=== PATIENT | male | born 1995 | race Caucasian/White ===

== ENCOUNTER 2016-08-18 | Outpatient (CLI) | END 2016-08-18 17:31 | disposition EMS.NT ==

== ENCOUNTER 2016-09-01 10:37 | Day surgery (SDC) | payer BC, MEDICAID ==
[~2016-09-01 10:37] MED LIST: ACETAMINOPHEN 1,000 MG/100 ML VIAL IV ONE; CLINDAMYCIN 600 MG/50 ML 50 ML IV ONE; DEXAMETHASONE 4 MG/ML VIAL IVP ONE; LIDOCAINE-MPF 2% 5 ML VIAL IM ONE; MIDAZOLAM 2 MG/2 ML VIAL IVP ONE; ONDANSETRON 4 MG/2 ML VIAL IVP ONE; PROPOFOL 200 MG/20 ML VIAL IVP ONE; ceFAZolin 2 GM/50 ML 50 ML IV ONE; fentaNYL 250 MCG/5 ML VIAL IVP ONE
[2016-09-01] MEDS ORDERED: BUPIVACAINE 0.25%-EPI 1:200000 PF 30 ML VIAL SUBQ ONE ×2 (11:14→13:44)
[2016-09-01] MEDS ORDERED: LACTATED RINGERS 1,000 ML IV ONE ×4 (11:14→15:24)
[2016-09-01] MEDS ORDERED: MIDAZOLAM 2 MG/2 ML VIAL IVP ONE (12:23)
[2016-09-01] MEDS ORDERED: LIDOCAINE-MPF 2% 5 ML VIAL IM ONE (12:23)
[2016-09-01] MEDS ORDERED: fentaNYL 250 MCG/5 ML VIAL IVP ONE (12:23)
[2016-09-01] MEDS ORDERED: ACETAMINOPHEN 1,000 MG/100 ML VIAL IV ONE (12:23)
[2016-09-01] MEDS ORDERED: PROPOFOL 200 MG/20 ML VIAL IVP ONE (12:23)
[2016-09-01] MEDS ORDERED: DEXAMETHASONE 4 MG/ML VIAL IVP ONE (12:23)
[2016-09-01] MEDS ORDERED: ONDANSETRON 4 MG/2 ML VIAL IVP ONE (12:23)
[2016-09-01] MEDS ORDERED: LIDOCAINE 1% 50 ML MDV SUBQ ONE ×2 (13:25)
== END 2016-09-01 10:38 | disposition home or self-care (01) ==
PROC: 0PSK04Z Reposition Right Ulna with Internal Fixation Device, Open Approach (ICD-10-PCS; principal; 2016-09-01 11:20)
DX: S52.021A Displaced fracture of olecranon process without intraarticular extension of right ulna, initial encounter for closed fracture (principal); R06.83 Snoring; G40.909 Epilepsy, unspecified, not intractable, without status epilepticus; E66.9 Obesity, unspecified; R62.50 Unspecified lack of expected normal physiological development in childhood; Z79.899 Other long term (current) drug therapy; Z68.39 Body mass index [BMI] 39.0-39.9, adult
CPT/HCPCS: 24685; J0131; J0690; J3010; J7120

== ENCOUNTER 2016-11-05 10:42 | Outpatient (CLI) | payer BC, MEDICAID | END 2016-11-05 10:43 | disposition home or self-care (01) | DX: S82.261 Displaced segmental fracture of shaft of right tibia (principal) ==

== ENCOUNTER 2018-03-31 13:51 | Outpatient (CLI) | payer BC, MEDICAID | END 2018-03-31 13:52 | disposition home or self-care (01) | LOC: SC 13:51 | PROVIDERS: ATTEND Nurse Practitioner Family | DX: G47.30 Sleep apnea, unspecified (principal); G47.10 Hypersomnia, unspecified; R06.83 Snoring; R53.83 Other fatigue | CPT/HCPCS: 99212; 99214 ==

== ENCOUNTER 2018-04-11 17:12 | Outpatient (CLI) | payer BC, MEDICAID | END 2018-04-11 17:13 | disposition critical access hospital (66) | LOC: EMS 17:12 | PROVIDERS: ATTEND Surgery | DX: S01.01XA Laceration without foreign body of scalp, initial encounter (principal); R56.9 Unspecified convulsions; W18.39XA Other fall on same level, initial encounter; W22.8XXA Striking against or struck by other objects, initial encounter; Y92.009 Unspecified place in unspecified non-institutional (private) residence as the place of occurrence of the external cause | CPT/HCPCS: A0425; A0429 ==

== ENCOUNTER 2018-04-11 17:37 | Emergency (ER) | payer BC, MEDICAID ==
--- NOTE | 2018-04-11 17:51 | ED Physician Documentation ---
PD HPI SEIZURE - Stated complaint Stated Complaint: HEAD LAC - Chief complaint Chief Complaint: Neuro - History obtained from History obtained from: Patient, EMS - History of Present Illness Timing - onset: No: Last night Witnessed: Witnessed Number of seizures: Single, Lasted minutes (1) Description of seizure activity: Generalized Injury during seizure: Head injury (left side of head in parietal area.) Associated symptoms: None, Nausea / vomiting. No: Headache, Chest pain History of seizures: Known seizure disorder Contributing factors: Head injury (left side of head. Also with left forearm abrastions.). No: Off meds, Out of meds, Changed meds, EtOH withdrawal, Sleep deprivation Similar symptoms before: Diagnosis Recently seen: Not recently seen Review of Systems Unable to obtain: Confused, Other (autistic but does answer questions and does not seem in distress. left side of head in parietal area with superficial lac/ abrasion, without bleeding. Mild tender.) Constitutional: denies: Fever Eyes: denies: Loss of vision Nose: reports: Congestion. denies: Rhinorrhea / runny nose Throat: denies: Sore throat Cardiac: denies: Chest pain / pressure, Palpitations Respiratory: denies: Dyspnea, Cough GI: denies: Abdominal Pain, Nausea, Vomiting, Diarrhea : denies: Dysuria, Frequency Skin: reports: Abrasion (s). denies: Rash, Lesions Musculoskeletal: reports: Extremity pain (abrasions left lateral elbow.). denies: Neck pain, Back pain Neurologic: reports: Altered mental status. denies: Headache, Head injury PD PAST MEDICAL HISTORY - Past Medical History Cardiovascular: None Respiratory: None Neuro: Seizure disorder, Other (developmental delay.) Endocrine/Autoimmune: None GI: None : None HEENT: None Psych: None Musculoskeletal: None, Other Derm: None - Past Surgical History Past Surgical History: No - Present Medications Home Medications: Ambulatory Orders Medication Instructions Recorded Confirmed Nystatin 1 gm TP TID #120 gr 03/23/14 09/01/16 OXcarbazepine [Trileptal] 900 mg PO 03/23/14 03/23/14 Risperidone [Risperdal] 1 mg PO 03/23/14 03/23/14 Topiramate [Topamax] 200 mg PO 03/23/14 03/23/14 - Allergies Allergies/Adverse Reactions: Allergies Allergy/AdvReac Type Severity Reaction Status Date / Time albuterol Allergy Unknown Verified 04/11/18 17:49 clarithromycin [From Biaxin] Allergy Unknown Verified 04/11/18 17:49 Penicillins Allergy Unknown Verified 04/11/18 17:49 - Social History Does the pt smoke?: No Smoking Status: Never smoker Does the pt drink ETOH?: No Does the pt have substance abuse?: No - Family History Family history: reports: Non contributory - Immunizations Immunizations are current?: No Immunizations: TDAP >10years/unknown - POLST Patient has POLST: No PD ED PE NORMAL - Vitals Vital signs reviewed: Yes - General General: Alert and oriented X 3, No acute distress, Well developed/nourished, Other (he is awake and looking around during RG fit) - HEENT HEENT: PERRL, Ears normal, Moist mucous membranes, Pharynx benign, Other (left parietal area with single superficial laceration. No FB nor active bleeding. ) - Neck Neck: Supple, no meningeal sign, No bony TTP, No adenopathy - Cardiac Cardiac: RRR, No murmur - Respiratory Respiratory: Clear bilaterally - Abdomen Abdomen: Soft, Non tender - Male Male : Deferred - Rectal Rectal: Deferred - Back Back: No CVA TTP - Derm Derm: Normal color, Warm and dry - Extremities Extremities: Other (left lateral elbow with abrasions. No effusion. Able to have full blexion and extension. ) - Neuro Neuro: No motor deficit, No sensory deficit Results - Vitals Vitals: Vital Signs - 24 hr 04/11/18 04/11/18 17:40 20:05 Temperature 37.3 C Heart Rate 103 H 69 Respiratory 18 18 Rate Blood Pressure 153/85 H 132/68 H O2 Saturation 100 100 Oxygen O2 Source Room air - Labs Labs: Laboratory Tests 04/11/18 04/11/18 18:47 18:47 WBC 8.5 RBC 4.58 L Hgb 14.5 Hct 41.7 L MCV 91.1 MCH 31.7 H MCHC 34.8 RDW 12.4 Plt Count 249 MPV 7.5 Neut # (Auto) 6.2 Lymph # (Auto) 1.7 Rutherford # (Auto) 0.6 Eos # (Auto) 0.0 Baso # (Auto) 0.0 Absolute Nucleated RBC 0.00 Nucleated RBC % 0.0 Sodium 134 L Potassium 3.2 L Chloride 105 Carbon Dioxide 18 L Anion Gap 11.0 BUN 7 Creatinine 0.9 Estimated GFR (MDRD) 104 Glucose 96 Calcium 9.0 Magnesium 2.1 Total Bilirubin 0.7 AST 27 ALT 42 Alkaline Phosphatase 65 Total Protein 7.6 Albumin 4.1 Globulin 3.5 Albumin/Globulin Ratio 1.2 Lipase 28 - Rads (name of study) head CT Radiology: Prelim report reviewed (no ICH nor acute process. ) PD MEDICAL DECISION MAKING - ED course Complexity details: reviewed old records, reviewed results, re-evaluated patient , considered differential (having more frequent seizures the past few months. Will get labs and levels. Has appt with Neurologist Apr 22. ), d/w patient, d/ w family - Sepsis Event Vital Signs: Vital Signs - 24 hr 04/11/18 04/11/18 17:40 20:05 Temperature 37.3 C Heart Rate 103 H 69 Respiratory 18 18 Rate Blood Pressure 153/85 H 132/68 H O2 Saturation 100 100 Oxygen O2 Source Room air Departure - Departure Disposition: 01 Home, Self Care Clinical Impression: Generalized seizure, Seizure disorder Head contusion Qualifiers: Encounter type: initial encounter Contusion of head detail: scalp Qualified Code(s): S00.03XA - Contusion of scalp, initial encounter Arm abrasion Qualifiers: Encounter type: initial encounter Laterality: left Qualified Code(s): S40.812A - Abrasion of left upper arm, initial encounter Condition: Stable Record reviewed to determine appropriate education?: Yes Follow-Up: Jh Martinez DO [Primary Care Provider] - Comments: His basic blood count and electrolytes are good except for slightly low potassium which does not really affect the seizures. The seizure medicine levels are drawn and sent out and will result in a couple of days. The head CT appears normal without any signs of fracture or bleeding inside. Use some ointment to the abrasions couple times a day. Recheck if signs of infection. Continue his usual medications. Follow-up with his neurologist as planned. Discharge Date/Time: 04/11/18 20:15
[2018-04-11] MEDS ORDERED: ACETAMINOPHEN 325 MG TABLET PO STA (18:24)
[2018-04-11 18:54] LABS: BASOPHILS % (AUTO) 0.6 %; EOSINOPHILS % (AUTO) 0.3 %; HGB - HEMOGLOBIN 14.5 g/dL (14.0-18.0); LYMPHOCYTES # (AUTO) 1.7 10^3/uL (1.5-3.5); LYMPHOCYTES % (AUTO) 19.6 %; MEAN CORPUSCULAR HEMOGLOBIN 31.7 pg (27.0-31.0); MEAN CORPUSCULAR HGB CONC 34.8 g/dL (32.0-36.0); MEAN CORPUSCULAR VOLUME 91.1 fL (80.0-94.0); MEAN PLATELET VOLUME 7.5 fL (7.4-11.4); MONOCYTES # (AUTO) 0.6 10^3/uL (0.0-1.0); MONOCYTES % (AUTO) 6.5 %; NEUTROPHILS # (AUTO) 6.2 10^3/uL (1.5-6.6); PLT - PLATELET COUNT 249 10^3/uL (130-450); RED BLOOD COUNT 4.58 10^6/uL (4.70-6.10); RED CELL DISTRIBUTION WIDTH 12.4 % (12.0-15.0); WHITE BLOOD COUNT 8.5 x10^3/uL (4.8-10.8)
[2018-04-11 19:08] LABS: ALBUMIN 4.1 g/dL (3.2-5.5); ALBUMIN/GLOBULIN RATIO 1.2 (1.0-2.2); BILIRUBIN,TOTAL 0.7 mg/dL (0.2-1.0); CREATININE 0.9 mg/dL (0.6-1.2); MAGNESIUM 2.1 mg/dL (1.7-2.8); TOTAL PROTEIN 7.6 g/dL (6.7-8.2)
[2018-04-11] MEDS ORDERED: POTASSIUM BICARB 25 MEQ TABLET PO STA (19:13)
--- NOTE | 2018-04-11 19:16 | CT Report ---
Reason: seizure and struck head Procedure Date: 04/11/2018 Accession Number: [id number] / [id number] Procedure: CT - Head W/O CPT Code: FULL RESULT: EXAM: CT HEAD EXAM DATE: 04/11/2018 07:06 PM. CLINICAL HISTORY: Head trauma after seizure. COMPARISON: 11/06/2007. TECHNIQUE: Multiaxial CT images were obtained from the foramen magnum to the vertex. Reformats: Sagittal and coronal. IV contrast: None. In accordance with CT protocol optimization, one or more of the following dose reduction techniques were utilized for this exam: automated exposure control, adjustment of mA and/or KV based on patient size, or use of iterative reconstructive technique. FINDINGS: Parenchyma: No intraparenchymal hemorrhage. No evidence of mass, midline shift, or CT findings of infarction. Hernandez-white differentiation is distinct. Extraaxial Spaces: Normal for age. No subdural or epidural collections identified. Ventricles: Normal in size and position. Sinuses and Orbits: Imaged paranasal sinuses, orbits, and mastoids show no significant abnormality. Bones: No evidence of fracture or calvarial defect. Other: None. IMPRESSION: Normal head CT. RADIA
[2018-04-11 20:15] VITALS: BP 132/68
== END 2018-04-11 20:15 | disposition home or self-care (01) ==
LOC: ED 17:37
DX: G40.909 Epilepsy, unspecified, not intractable, without status epilepticus (principal); S00.03XA Contusion of scalp, initial encounter; S40.812A Abrasion of left upper arm, initial encounter; W18.30XA Fall on same level, unspecified, initial encounter; Y92.015 Private garage of single-family (private) house as the place of occurrence of the external cause; E87.6 Hypokalemia; F84.0 Autistic disorder
CPT/HCPCS: 36415; 70450; 80053; 81599; 83690; 83735; 85025; 99284; A9270

== ENCOUNTER 2018-06-14 17:21 | Outpatient (CLI) | payer BC, MEDICAID | END 2018-06-14 17:22 | disposition EMS.NT | LOC: EMS 17:21 | PROVIDERS: ATTEND Surgery | DX: R56.9 Unspecified convulsions (principal) ==

== ENCOUNTER 2018-06-29 15:31 | Outpatient (CLI) | payer BC, MEDICAID | END 2018-06-29 15:32 | disposition home or self-care (01) | LOC: SC 15:31 | PROVIDERS: ATTEND Nurse Practitioner Family | DX: G47.33 Obstructive sleep apnea (adult) (pediatric) (principal) | CPT/HCPCS: 99212; 99214 ==

== ENCOUNTER 2018-09-15 09:30 | Outpatient (CLI) | payer BC, MEDICAID | END 2018-09-15 09:31 | disposition home or self-care (01) | LOC: SC 09:30 | PROVIDERS: ATTEND Nurse Practitioner Family | DX: G47.33 Obstructive sleep apnea (adult) (pediatric) (principal) | CPT/HCPCS: 99212; 99214 ==

== ENCOUNTER 2018-11-21 15:00 | Outpatient (CLI) | payer BC, MEDICAID | END 2018-11-21 15:01 | disposition home or self-care (01) | LOC: SC 15:00 | PROVIDERS: ATTEND Nurse Practitioner Family | DX: G47.33 Obstructive sleep apnea (adult) (pediatric) (principal) | CPT/HCPCS: 99212; 99214 ==

== ENCOUNTER 2019-01-02 13:25 | Outpatient (CLI) | payer BC, MEDICAID | END 2019-01-02 13:26 | disposition home or self-care (01) | LOC: SC 13:25 | PROVIDERS: ATTEND Nurse Practitioner Family | DX: G47.33 Obstructive sleep apnea (adult) (pediatric) (principal) | CPT/HCPCS: 99212; 99214 ==

== ENCOUNTER 2019-02-20 12:50 | Outpatient (CLI) | payer BC, MEDICAID | END 2019-02-20 12:51 | disposition home or self-care (01) | LOC: SC 12:50 | PROVIDERS: ATTEND Nurse Practitioner Family | DX: G47.33 Obstructive sleep apnea (adult) (pediatric) (principal) | CPT/HCPCS: 99212; 99214 ==

== ENCOUNTER 2019-04-03 13:23 | Outpatient (CLI) | payer BC, MEDICAID ==
[2019-04-03 14:12] VITALS: BP 132/64
--- NOTE | 2019-04-03 14:12 | SLEEP CARE CONSULTATION ---
Information from patient questionnaire entered by Karyna Aburto. I have reviewed and concur with the information entered by Karyna Aburto. This document represents the service I personally performed and the decisions made by me, Brandie Block, RN, MSN, RADIAL ARM SAW OPERATOR. History of Present Illness Previous diagnosis: Moderate, Obstructive Sleep Apnea-Hypopnea Syndrome AHI: 18.9 Reason for CPAP/BiPAP follow up: other (6 WEEK FOLLOW UP WITH PRESSURE CHANGE) Equipment type: CPAP Equipment obtained from: [employer] Prior sleep studies: Yes Year and Where: 2018 [facility] additional information: The mask cushion was replaced as ordered - about 3 weeks ago. His chinstrap is wearing out and about 6 months old. He has started to use CPAP with nap but forgets sometimes and sleeps without it. CPAP Compliance Data - Data Reviewed with Patient Average duration of nightly device use: 5H 36M Compliance rate %: 70 Current pressure setting (cmH2O): 8-16 Humidity settin Heated hose settin Average residual AHI: 20.1 Central apnea: 0.9 Obstructive apnea: 11.1 Hypopnea: 8.1 Average large leak: 1 hour and 20 minutes Subjective Missed days of use due to: reports: other (falling asleep without CPAP ) Patient concerns: reports: other (mother has heard mask leaks and checks on patient and has found mask dislodged and sitting on forehead. ). denies: aerophagia, mask discomfort, air blowing in eyes, mask leak noise, condensation in mask/hose, nasal congestion, dry mouth, nose, throat, epistaxis Observed to snore while using device: No On therapy, patient: reports: sleeping better, awakening more refreshed, being more awake and alert during the day, more rested overall. denies: drowsiness while driving (does not drink) Initial [place] Sleepiness Scale score: 3 Current [place] Sleepiness Scale score: 3 Allergies and Home Medications Known drug allergies: Yes (penicillin, biaxin, albuterol) Home medication list reviewed: Yes Allergy and home medication list: Medication Name (generic/name brand) Strength & Dosage Risperdal 1mg tab one twice daily Oxcarbazepine 300mg tab two am and three pm Lorazepam 0.5mg tab one q4hr prn seizure Topamax 200mg tab one am and 300mg pm Clindamycin Phos-Benzoyl Perox 1-5% Apply small amount to face nightly Diastat Acudial 10mg rectal gel (Diazepam) Apply 10mg rectally prn seizure disorder Vitamin D 5000unit tab one daily Allergy List Biaxin PenicillinV Potassium Albuterol Sulfate Physical Exam Blood Pressure: 132/64 Cuff size: long Heart Rate: 68 O2 Saturation: 98 Height: 5 ft 10.5 in Weight (kg): 127.006 kg Body Mass Index: 39.6 BMI Classification: Class 2 Impression and Plan 1. Obstructive Sleep Apnea-Hypopnea Syndrome, with good treatment compliance but still has elevated residual AHI as the pressure was not changed as ordered. The pressure was again requested to be changed to [id number]. On CPAP therapy, the patient has better sleep quality and is more rested overall. His elevated residual AHI could also be due to mask leaks from old worn headgear and chinstrap. Thus new ones were ordered with prescription as she was able to finally obtain updated cushions after last prescription order. Patient was praised for effort in using CPAP. He has increased his average nightly use 50 minutes to 5.6 hours a night. He is again advised to use CPAP with all naps with goal of not needing a nap if he can use CPAP all through the night for a minimum of 7 hours. It is hoped that the replacement of chinstrap and headgear will assist him to use CPAP longer as his mother is finding mask dislodged intermittently. Until then she is advised to adjust present headgear evenly. Patient's apnea severity and rationale for treatment to reduce apnea, improve sleep quality and reduce cardiovascular and cerebrovascular events was reviewed. I also reviewed the benefit of consistent device use of CPAP for his seizures. He has not had a seizure since November and is was a mild one. Mother states vagal nerve stimulator also adjusted. He has also gained some weight and advised to lose as it can increase his CPAP pressure requirements. * Change CPAP pressure to 13-20 cmH2O - 2nd request * update mask headgear and chinstrap. * Adjust mask * Use the CPAP with all sleep, including naps. * Notify me if snoring with mask or feeling that the pressure is too much or too little * Attempt to lose weight * Return for follow up in 1-2 months , or sooner if concerns arise I spent 100% of this 30 minute visit face to face with the patient with greater than 50% of this was spent time counseling the patient and coordination of care.
== END 2019-04-03 13:24 | disposition home or self-care (01) ==
LOC: SC 13:23
PROVIDERS: ATTEND Nurse Practitioner Family
DX: G47.33 Obstructive sleep apnea (adult) (pediatric) (principal)
CPT/HCPCS: 99212; 99214

== ENCOUNTER 2019-06-06 13:13 | Outpatient (CLI) | payer BC, MEDICAID ==
[2019-06-06 14:21] VITALS: BP 120/70
--- NOTE | 2019-06-06 14:21 | SLEEP CARE CONSULTATION ---
Information from patient questionnaire entered by Karyna Aburto. I have reviewed and concur with the information entered by Karyna Aburto. This document represents the service I personally performed and the decisions made by me, Brandie Block, RN, MSN, ROLL OR TAPE EDGE MACHINE OPERATOR. History of Present Illness Previous diagnosis: Moderate, Obstructive Sleep Apnea-Hypopnea Syndrome AHI: 18.9 Reason for CPAP/BiPAP follow up: other (2 month) Equipment type: CPAP Equipment obtained from: [employer] Mask style: Nasal (eson 2) Mask brand: dotloop Backup mask available: No Last cushion change: a month or so ago Prior sleep studies: Yes HPI additional information: Patient mother feels he has been using it longer hours. He is pulling off mask less often in sleep. CPAP Compliance Data - Data Reviewed with Patient Average duration of nightly device use: 5h 31m Compliance rate %: 66.7 Current pressure setting (cmH2O): 8-16 Humidity settin Heated hose settin Average residual AHI: 15.7 Central apnea: 0.8 Obstructive apnea: 9.4 Hypopnea: 5.5 Subjective Missed days of use due to: reports: travel Patient concerns: reports: nasal congestion (recent cold), other (part of headgear broke off a couple of days ago. ). denies: aerophagia, mask discomfort, air blowing in eyes, mask leak noise, condensation in mask/hose, dry mouth, nose, throat (uses chinstrap), epistaxis Observed to snore while using device: No Current pressure setting perceived as: comfortable On therapy, patient: reports: sleeping better, more rested overall Initial [place] Sleepiness Scale score: 3 Current [place] Sleepiness Scale score: 4 Allergies and Home Medications Known drug allergies: Yes Allergy and home medication list: Medication Name (generic/name brand) Strength & Dosage Risperdal 1mg tab one twice daily Oxcarbazepine 300mg tab three am and three pm Lorazepam 0.5mg tab one q4hr prn seizure Topamax 200mg tab one am and 300mg pm Clindamycin Phos-Benzoyl Perox 1-5% Apply small amount to face nightly Diastat Acudial 10mg rectal gel (Diazepam) Apply 10mg rectally prn seizure disorder Vitamin D 5000unit tab one daily Allergy List Biaxin PenicillinV Potassium Albuterol Sulfate Review of Systems Review of systems same as previous: No (cold) Physical Exam Blood Pressure: 120/70 Cuff size: long Heart Rate: 68 O2 Saturation: 98 Height: 5 ft 10.5 in Weight: 279 lb 12.8 oz Body Mass Index: 39.5 BMI Classification: Obesity Class 2 Impression and Plan 1. Obstructive Sleep Apnea-Hypopnea Syndrome, moderate, with better treatment compliance and better apnea control. On CPAP therapy, the patient has better sleep quality and is more rested overall and mother notices improved mood. His compiance is now 66.7% just under 70% goal. He is using CPAP nightly and has increased nightly CPAP use 45 minutes. Since patient is not due for a new mask headgear and his is broken, I fitted him with a large Eson2 nasal mask. The residual AHI has reduced with better control of mask leaks and I would like this continued. The CPAP pressure was again not changed as requested the second time. Thus I will have changed in office if possible. If no access, then I will have the advertising operations coordinator contact [facility]. Patient's mother advised to contact this office if the pressure change is uncomfortable. It is hoped the new mask and new pressure will reduce AHI further. Patient's apnea severity and rationale for treatment to reduce apnea, improve sleep quality and reduce cardiovascular and cerebrovascular events was reviewed. I also reviewed the possible benefit of consistent device use of CPAP to his seizures due to reduced hypoxia. * * Change CPAP pressure to 13-20 cmH2O * Try new mask * Continue to use CPAP with all sleep * Notify me if snoring with mask or feeling that the pressure is too much or too little * Attempt to lose weight * Return for follow up in 2 months , or sooner if concerns arise . I spent 100% of this 25 minute visit face to face with the patient with greater than 50% of this was spent time counseling the patient and coordination of care.
== END 2019-06-06 13:14 | disposition home or self-care (01) ==
LOC: SC 13:13
PROVIDERS: ATTEND Nurse Practitioner Family
DX: G47.33 Obstructive sleep apnea (adult) (pediatric) (principal); E66.9 Obesity, unspecified; Z68.39 Body mass index [BMI] 39.0-39.9, adult
CPT/HCPCS: 99212; 99214

== ENCOUNTER 2019-08-14 13:05 | Outpatient (CLI) | payer BC, MEDICAID ==
[2019-08-14 13:46] VITALS: BP 134/60
--- NOTE | 2019-08-14 13:46 | SLEEP CARE CONSULTATION ---
Information from patient questionnaire entered by Raquel Vasquez. I have reviewed and concur with the information entered by Raquel Vasquez. This document represents the service I personally performed and the decisions made by me, Brandie Block, RN, MSN, CHRONIC MANAGER. History of Present Illness Previous diagnosis: Moderate, Obstructive Sleep Apnea-Hypopnea Syndrome AHI: 18.9 Reason for follow up: other (2 month) Accompanied by: mother Equipment type: CPAP Equipment obtained from: [employer] Mask style: Nasal Mask brand: [employer] Backup mask available: Yes Last cushion change: unknown HPI additional information: The mask given has worked well. This is good as he still has not received updated supplies, despite being due 08/01/19. His mother called and it turns out they just did not have chinstrap available. CPAP Compliance Data - Data Reviewed with Patient Average duration of nightly device use: 6 hrs Current pressure setting (cmH2O): 13-20 Humidity settin Heated hose settin Average residual AHI: 13.5 Central apnea: 0.4 Obstructive apnea: 4.5 Hypopnea: 8.6 Average large leak: 2.9 hours - vent buffer pad fell off the past few weeks / more leaks noted Subjective Missed days of use due to: reports: illness Patient concerns: reports: other (no recent observable seizures since April 13. ). denies: aerophagia, mask discomfort, air blowing in eyes, mask leak noise, condensation in mask/hose, nasal congestion, dry mouth, nose, throat, epistaxis Observed to snore while using device: No Current pressure setting perceived as: comfortable On therapy, patient: reports: sleeping better, being more awake and alert during the day (mother has not noted napping with new pressure ), more rested overall. denies: drowsiness while driving (does not drive ) Initial [place] Sleepiness Scale score: 3 Current [place] Sleepiness Scale score: 4 Allergies and Home Medications Known drug allergies: Yes (see list ) Drug allergies reviewed: Yes Home medication list reviewed: Yes (no changes) Review of Systems Review of systems same as previous: Yes Physical Exam Blood Pressure: 134/60 Cuff size: long Heart Rate: 94 O2 Saturation: 98 Height: 5 ft 10.5 in Weight: 279 lb Body Mass Index: 39.4 BMI Classification: Obesity Class 2 Impression and Plan 1. Obstructive Sleep Apnea-Hypopnea Syndrome, mild, with good treatment compliance and better apnea control. On CPAP therapy, the patient has better sleep quality and is more rested overall especially since last visit with updated mask and new pressure range. His mother has noted he no longer naps. If lies down, he does not sleep. She has also noted improved alertness during the day. In addition, there have been no observable seizures since late March. His CPAP nightly use is the best so far. Patients mother advised to continue to follow up with DME to get supplies on time to reduce mask leaks. Changing his mask cushion 2 times a month will improve fit. I will change his autoCPAP pressure slightly to [id number] as 90% pressure is 15.1. Patient's mother to c ontact me if new pressure not as comfortable for patient to use. She was shown how to check mask fit and AHI and hours used on sample CPAP. Patient's apnea severity and rationale for treatment to reduce apnea, improve sleep quality and reduce cardiovascular and cerebrovascular events was reviewed. * * Change autoCPAP pressure to 15-20 cmH2O * change mask cushions more often * Tract use and call if less * Notify me if snoring with mask or feeling that the pressure is too much or too little * Attempt to lose weight * Call this office if any problems using CPAP * Return for follow up in 3 months , or sooner if concerns arise Time Spent with Patient (minutes): 28 I spent 100% of this visit face to face with the patient with greater than 50% of this was spent time counseling the patient and coordination of care.
== END 2019-08-14 13:06 | disposition home or self-care (01) ==
LOC: SC 13:05
PROVIDERS: ATTEND Nurse Practitioner Family
DX: G47.33 Obstructive sleep apnea (adult) (pediatric) (principal); E66.9 Obesity, unspecified; Z68.39 Body mass index [BMI] 39.0-39.9, adult
CPT/HCPCS: 99212; 99214

== ENCOUNTER 2020-03-07 13:09 | Outpatient (CLI) | payer BC, MEDICAID ==
--- NOTE | 2020-03-07 13:45 | SLEEP CARE CONSULTATION ---
Information from patient questionnaire entered by Karyna Aburto. I have reviewed and concur with the information entered by Karyna Aburto. This document represents the service I personally performed and the decisions made by me, Brandie Block, RN, MSN, SHADOWGRAPH OPERATOR. History of Present Illness Service Date and Time: 03/07/2020 1309 Previous diagnosis: Moderate, Obstructive Sleep Apnea-Hypopnea Syndrome AHI: 18.9 Reason for follow up: six month (with pressure change) Equipment type: CPAP Equipment obtained from: [employer] (getting supplies as needed) Mask style: Nasal (with chinstrap) Backup mask available: Yes (old mask ) Last cushion change: 2-3 months HPI additional information: Changes since last seen is an increase in irritability. He has seen his neurologist and he informed that his current medication of Topiramate may be the cause so he needs to taper off as Lamictal is being start ed. He was also started on Remeron which is concerning Baudilio's mother about side effect to increase in appetite as he has started to gain weight. CPAP Compliance Data - Data Reviewed with Patient Average duration of nightly device use: 5h 25m Compliance rate %: 65 Current pressure setting (cmH2O): 15-20 Humidity settin Heated hose settin Average residual AHI: 10.8 (90% pressure average 17.8cmH20 / average 16.4cmH20) Central apnea: 0.5 Obstructive apnea: 5.4 Hypopnea: 4.9 Average large leak: 1h 35m 59s Subjective Patient concerns: reports: other (mother is finding his mask off in sleep a few times recently). denies: aerophagia, mask discomfort, air blowing in eyes, mask leak noise, condensation in mask/hose, nasal congestion, dry mouth, nose, throat, epistaxis Observed to snore while using device: No Current pressure setting perceived as: comfortable On therapy, patient: reports: sleeping better, awakening more refreshed, being more awake and alert during the day, more rested overall, other (continues to have no seizures ). denies: drowsiness while driving Initial [place] Sleepiness Scale score: 3 Allergies and Home Medications Known drug allergies: No (see list ) Home medication list reviewed: No (see HPI) Review of Systems Review of systems same as previous: No (see HPI ) Physical Exam Vital signs obtained and entered by: 144/74 Cuff size: long Heart Rate: 98 O2 Saturation: 85 Height: 5 ft 10.5 in Weight: 284 lb 6.4 oz (increase 10 pounds since starting Remeron) Body Mass Index: 40.2 BMI Classification: Morbidly Obese Impression and Plan 1. Obstructive Sleep Apnea-Hypopnea Syndrome, moderate, with fair treatment compliance and better apnea control. The higher pressure range reduced his residual AHI from 13.5 to 10.8. HIs mask leaks have reduced from 2.9 hours to 1.6 hours. On CPAP therapy, the patient has better sleep quality and is more rested overall and he continues to have no seizure activity since [place] last year. The patients pressure will be changed to autoCPAP 17-20 cmH20 For elevation of residual AHI. Patient's mother advised to contact me if pressure change is uncomfortable so that it can be adjusted. Goals for apnea control disc ussed. To improve mask fit, his mother is advised to update cushions and adjust mask headgear as needed. If continued problems, call [facility] for mask fitting and this office if an order is needed. For weight increase concerns, she is to contact the neurologist and her PCP. She agreed with plan. Patient's apnea severity and rationale for treatment to reduce apnea, improve sleep quality and reduce cardiovascular and cerebrovascular events was reviewed. Patient praised for continued effort to use CPAP with all his sleep. * * Changeauto CPAP pressure to 17-20 cmH2O * Implement measures to reduce mask leaks. * Notify me if snoring with mask or feeling that the pressure is too much or too little * Attempt to lose weight * Call this office if any problems using CPAP * Return for follow up in 2 months , or sooner if concerns arise Visit Type: In Office Time Spent with Patient (minutes): 25 Provider Statement: I spent 100% of the Face to Face Visit with the patient with greater than 50% spent counseling the patient and coordination of care.
== END 2020-03-07 13:10 | disposition home or self-care (01) ==
LOC: SC 13:09
PROVIDERS: ATTEND Nurse Practitioner Family
DX: G47.33 Obstructive sleep apnea (adult) (pediatric) (principal); E66.01 Morbid (severe) obesity due to excess calories; Z68.41 Body mass index [BMI] 40.0-44.9, adult
CPT/HCPCS: 99212; 99214

== ENCOUNTER 2020-03-08 10:40 | Outpatient (CLI) | payer BC, MEDICAID | END 2020-03-08 10:41 | disposition EMS.NT | LOC: EMS 10:40 | PROVIDERS: ATTEND Surgery | DX: R56.9 Unspecified convulsions (principal) ==

== ENCOUNTER 2020-05-08 13:31 | Outpatient (CLI) | payer BC, MEDICAID ==
--- NOTE | 2020-05-08 14:17 | SLEEP CARE CONSULTATION ---
Information from patient questionnaire entered by Raquel Vasquez. I have reviewed and concur with the information entered by Raquel Vasquez. This document represents the service I personally performed and the decisions made by me, Brandie Block, RN, MSN, TECHNICAL SALES REPRESENTATIVES. History of Present Illness Service Date and Time: 05/08/2020 1331 Previous diagnosis: Moderate, Obstructive Sleep Apnea-Hypopnea Syndrome AHI: 18.9 (in 2018) Reason for follow up: other (2 month) Equipment type: CPAP Equipment obtained from: [employer] Mask style: Nasal [facility] Type [facility] Study: Home sleep study ([facility]) Sleep Study - Results Prior sleep studies: Yes Year and Where: 2017 [facility] CPAP Compliance Data - Data Reviewed with Patient Average duration of nightly device use: 4.8 Compliance rate %: 60 Current pressure setting (cmH2O): 17-20 Humidity settin Heated hose settin Average residual AHI: 7.1 Central apnea: 0.0 Obstructive apnea: 0.0 Hypopnea: 7.1 Average large leak: 4 hrs 36 min 26 sec Subjective Patient concerns: reports: dry mouth, nose, throat. denies: aerophagia, mask discomfort, air blowing in eyes, mask leak noise, condensation in mask/hose, nasal congestion, epistaxis, other Observed to snore while using device: Yes (with mouth open , nasal mask in place) Current pressure setting perceived as: comfortable On therapy, patient: reports: sleeping better, awakening more refreshed, being more awake and alert during the day, more rested overall. denies: drowsiness while driving (does not drive ) Initial [place] Sleepiness Scale score: 3 (in 2018) Allergies and Home Medications Known drug allergies: Yes Home medication list reviewed: No (stopped Remeron and replaced with celexa ) Review of Systems Review of systems same as previous: Yes Physical Exam Blood Pressure: 128/72 Cuff size: long Heart Rate: 63 O2 Saturation: 98 Height: 5 ft 10.5 in Weight: 278 lb 6.4 oz Weight change since last visit: lost 6 pounds since Remeron stopped Body Mass Index: 39.4 BMI Classification: Obese Impression and Plan 1. Obstructive Sleep Apnea-Hypopnea Syndrome, moderate, with fair treatment compliance and mild elevated residual AHI. On CPAP therapy, the patient has better sleep quality and is more rested overall. For increased residual AHI and oral venting noted by patient's mother she heard him snore with his nasal mask on, I will order a mask refitting. This should also resolve his oral dryness. Mask refitting could be a nasal mask with chinstrap or full face mask as indicated with evaluation of RT. I believe his residual AHI will come down to goal of below 5 with better mask fit. Pressure change showed reduced AHI from 10.8 to 7. Masks leaks could be reason the use of CPAP hours is less as so large , device mistakes large leak for off face due to review of compliance and longer use noted overall. Patient's apnea severity and rationale for treatment to reduce apnea, improve sleep quality and reduce cardiovascular and cerebrovascular events was reviewed. * Continue auto CPAP pressure at 17-20 cmH2O * mask refitting * Notify me if snoring with mask or feeling that the pressure is too much or too little * Attempt to lose weight * Call this office if any problems using CPAP * Return for follow up in 1 -2 months after mask refitting , or sooner if concerns arise Visit Type: In Office Time Spent with Patient (minutes): 22 Provider Statement: I spent 100% of the Face to Face Visit with the patient with greater than 50% spent counseling the patient and coordination of care.
[2020-05-08 14:18] VITALS: BP 128/72
== END 2020-05-08 13:32 | disposition home or self-care (01) ==
LOC: SC 13:31
PROVIDERS: ATTEND Nurse Practitioner Family
DX: G47.33 Obstructive sleep apnea (adult) (pediatric) (principal); E66.9 Obesity, unspecified; Z68.39 Body mass index [BMI] 39.0-39.9, adult
CPT/HCPCS: 99212; 99213

== ENCOUNTER 2020-06-19 14:31 | Outpatient (CLI) | payer BC, MEDICAID ==
--- NOTE | 2020-06-19 15:13 | SLEEP CARE CONSULTATION ---
Information from patient questionnaire entered by Nathalie Dominguez. I have reviewed and concur with the information entered by Nathalie Dominguez. This document represents the service I personally performed and the decisions made by me, Valeria Warren ARNP. History of Present Illness Service Date and Time: 06/19/2020 1431 Previous diagnosis: Moderate, Obstructive Sleep Apnea-Hypopnea Syndrome AHI: 18.9 Reason for follow up: other (6-week followup) Equipment type: CPAP Equipment obtained from: [employer] (getting supplies as needed) Mask style: Full face (with chinstrap) Backup mask available: Yes (old mask) Last cushion change: 5-6 weeks Prior sleep studies: Yes Year and Where: 2017 [facility] Type of Sleep Study: Home sleep study HPI additional information: BAUDILIO QUINTERO was diagnosed to have moderate, AHI 18.9, obstructive sleep apnea- hypopnea syndrome and returned today with mother for CPAP therapy six week follow-up. Sleep Study - Results Type of Sleep Study: Home sleep study Prior sleep studies: Yes Year and Where: 2017 [facility] CPAP Compliance Data - Data Reviewed with Patient Average duration of nightly device use: 3 h 31 min Compliance rate %: 40 Current pressure setting (cmH2O): 17-20 Humidity settin Heated hose settin Average residual AHI: 12.3 Central apnea: 0.0 Obstructive apnea: 0.0 Hypopnea: 12.3 Average large leak: 3 h 25 min 42 sec Compliance data discussion: He switched his mask to a full mask. Mother states that he seems to be wearing it better and it is in the right place when she checks on him before going to bed. He does get restless some times and moves to where the mask is off a little where she cannot reposition it, but this is only occasionally. Subjective Patient concerns: denies: aerophagia, mask discomfort, air blowing in eyes, mask leak noise, condensation in mask/hose, nasal congestion, dry mouth, nose, throat, epistaxis, other Observed to snore while using device: No Current pressure setting perceived as: comfortable On therapy, patient: reports: sleeping better, awakening more refreshed, being more awake and alert during the day, more rested overall Initial [place] Sleepiness Scale score: 2 (in 2016) Current [place] Sleepiness Scale score: 2 Allergies and Home Medications Drug allergies reviewed: Yes (albuterol, clarithromycin, penicillin) Home medication list reviewed: Yes (no changes) Review of Systems Review of systems same as previous: Yes (no changes) Physical Exam Heart Rate: 77 O2 Saturation: 98 Height: 5 ft 10.5 in Weight: 277 lb Body Mass Index: 39.2 BMI Classification: Obese Impression and Plan 1. Obstructive Sleep Apnea-Hypopnea Syndrome, moderate, with poor treatment compliance and poor apnea control with elevated residual AHI. On CPAP therapy, the patient has better sleep quality and is more rested overall. Patient does seem to be able to keep the mask in place per his mother but he is still having over 3 hours of large leaks showing on his download. He does need to shave and has not changed out the mask in over 5 weeks. I encouraged him to clean his face and shave daily to allow the mask to seal well to reduced mask leaks. They were instructed to change mask every 2 weeks as well to encourage a good seal stays on the mask/face fit. I encouraged Baudilio to keep the mask on all night and he agreed that he will. Mother states he is up with it off before she gets up in the mornings so is unsure when it comes off. She does not hear him up in the bathroom very often during the night. His elevated residual AHI is probably due to the mask leaking, I will continue pressure at current pressure range at this time. Patient's apnea severity and rationale for treatment to reduce apnea, improve sleep quality and reduce cardiovascular and cerebrovascular events was reviewed. * Continue auto CPAP pressure at 17-20 cmH2O * Notify me if snoring with mask or feeling that the pressure is too much or too little * Attempt to lose weight * Call this office if any problems using CPAP * Return for follow up in 1-2 months, or sooner if concerns arise Counseling Topics: Spare mask Visit Type: In Office Other Participants: Other (Mother) Time Spent with Patient (minutes): 23 Provider Statement: I spent 100% of the Face to Face Visit with the patient with greater than 50% spent counseling the patient and coordination of care.
== END 2020-06-19 14:32 | disposition home or self-care (01) ==
LOC: SC 14:31
PROVIDERS: ATTEND Nurse Practitioner Family
DX: G47.33 Obstructive sleep apnea (adult) (pediatric) (principal); E66.9 Obesity, unspecified; Z68.39 Body mass index [BMI] 39.0-39.9, adult
CPT/HCPCS: 99212

== ENCOUNTER 2020-07-31 12:52 | Outpatient (CLI) | payer BC, MEDICAID ==
--- NOTE | 2020-07-31 13:30 | SLEEP CARE CONSULTATION ---
Information from patient questionnaire entered by Raquel Vasquez. I have reviewed and concur with the information entered by Raquel Vasquez. This document represents the service I personally performed and the decisions made by , Valeria Warren ARNP. History of Present Illness Service Date and Time: 07/31/2020 1252 Previous diagnosis: Moderate, Obstructive Sleep Apnea-Hypopnea Syndrome AHI: 18.9 (in 2018) Reason for follow up: other (6 week) Equipment type: CPAP Equipment obtained from: [employer] (getting supplies as needed) Mask style: Full face Backup mask available: Yes Last cushion change: 2 weeks Prior sleep studies: Yes Year and Where: 2018 - [email or web address] Type of Sleep Study: Home sleep study HPI additional information: GOGO QUINTERO was diagnosed to have moderate, AHI 18.9, obstructive sleep apnea- hypopnea syndrome and returned today with his mother for CPAP therapy 6 week pressure change follow-up. CPAP Compliance Data - Data Reviewed with Patient Average duration of nightly device use: 3 hr 7 min Compliance rate %: 30 Current pressure setting (cmH2O): 17-20 Humidity settin Heated hose settin Average residual AHI: 12.3 Central apnea: 0.0 Obstructive apnea: 0.0 Hypopnea: 12.3 Average large leak: 2 hr 59 min Subjective Initial [place] Sleepiness Scale score: 2 (in 2016) Current [place] Sleepiness Scale score: 2 Allergies and Home Medications Drug allergies reviewed: Yes (albuterol, clarithromycin, penicillins) Home medication list reviewed: Yes (no changes) Review of Systems Review of systems same as previous: No (surgical procedure 06/24/2020 battery repl vagal nerve stimulator) Physical Exam Heart Rate: 75 O2 Saturation: 98 Height: 5 ft 10.5 in Weight: 278 lb Body Mass Index: 39.3 BMI Classification: Obese Impression and Plan 1. Obstructive Sleep Apnea-Hypopnea Syndrome, moderate, with poor treatment compliance and poor apnea control with elevated residual AHI at 12.3. On CPAP therapy, the patient has better sleep quality and is more rested overall. He is accompanied by his mother who feels he is not snoring through the full face mask. He continues to have large leaks just under 3 hours and an elevated residual AHI. His mother states she has been checking and the mask is staying on his face at night. She is not hearing snoring or large leaking noises around the mask. She would like to try him back in the [place] mask because she thinks it was working better. The patients pressure will be continue at autoCPAP 17-20 cmH20. The down load shows use under 3 hours a night on average with large leaks and only using 17 cmH2O overall with a residual of 12.3. I am concerned that we are not getting good information or the machine pressure is malfunctioning. I will order the machine to be serviced to check for malfunctioning. Mother will try him back on the [place] mask as well until the next follow up. Patient's apnea severity and rationale for treatment to reduce apnea, improve sleep quality and reduce cardiovascular and cerebrovascular events was reviewed. * Continue auto CPAP pressure at 17-20 cmH2O * Service machine for possible malfunctioning * Notify me if snoring with mask or feeling that the pressure is too much or too little * Call this office if any problems using CPAP * Return for follow up in 1-2 months, or sooner if concerns arise Counseling Topics: Spare mask Visit Type: In Office Time Spent with Patient (minutes): 25 Provider Statement: I spent 100% of the Face to Face Visit with the patient with greater than 50% spent counseling the patient and coordination of care.
== END 2020-07-31 12:53 | disposition home or self-care (01) ==
LOC: SC 12:52
PROVIDERS: ATTEND Nurse Practitioner Family
DX: G47.33 Obstructive sleep apnea (adult) (pediatric) (principal); E66.9 Obesity, unspecified; Z68.39 Body mass index [BMI] 39.0-39.9, adult
CPT/HCPCS: 99212; 99213

== ENCOUNTER 2020-10-09 13:19 | Outpatient (CLI) | payer BC, MEDICAID ==
--- NOTE | 2020-10-09 13:58 | SLEEP CARE CONSULTATION ---
Information from patient questionnaire entered by Nathalie Dominguez. I have reviewed and concur with the information entered by Nathalie Dominguez. This document represents the service I personally performed and the decisions made by , Valeria Warren ARNP. History of Present Illness Service Date and Time: 10/09/2020 1319 Previous diagnosis: Moderate, Obstructive Sleep Apnea-Hypopnea Syndrome AHI: 18.9 Reason for follow up: other (2-month followup) Equipment type: CPAP Equipment obtained from: [employer] (getting supplies as needed) Mask style: Full face (with chinstrap) Backup mask available: Yes (old mask) Prior sleep studies: Yes Year and Where: 2018 - [facility] Type of Sleep Study: Home sleep study HPI additional information: GOGO QUINTEOR was diagnosed to have moderate, AHI 18.9, obstructive sleep apnea- hypopnea syndrome and returned today with mother for CPAP therapy two month follow-up. CPAP Compliance Data - Data Reviewed with Patient Average duration of nightly device use: 3 h 39 min Compliance rate %: 45 Current pressure setting (cmH2O): 17-20 Humidity settin Heated hose settin Average residual AHI: 13.9 Central apnea: 0.0 Obstructive apnea: 0.2 Hypopnea: 13.7 Average large leak: 3 h 27 min 27 sec Subjective Patient concerns: denies: aerophagia, mask discomfort, air blowing in eyes, mask leak noise, condensation in mask/hose, nasal congestion, dry mouth, nose, throat, epistaxis, other Observed to snore while using device: No Current pressure setting perceived as: comfortable On therapy, patient: reports: sleeping better, awakening more refreshed, being more awake and alert during the day, more rested overall Initial [place] Sleepiness Scale score: 2 (in 2016) Current [place] Sleepiness Scale score: 3 Allergies and Home Medications Home medication list reviewed: Yes (no changes) Review of Systems Review of systems same as previous: Yes (no changes) Physical Exam Heart Rate: 74 O2 Saturation: 97 Height: 5 ft 10.5 in Weight: 280 lb Body Mass Index: 39.6 BMI Classification: Obese Impression and Plan 1. Obstructive Sleep Apnea-Hypopnea Syndrome, moderate, with poor treatment compliance and fair apnea control with an elevated residual AHI. On CPAP therapy, the patient has better sleep quality and is more rested overall. His mother states that when he is less tired during the day and not wanting to take naps. His mother states that the RT came to check out his machine and found that his machine was malfunctioning. They replaced it with another machine and took the old one back with them. She has not heard back from them about the machine. She states the new machine will read that he is sleeping over 9 hours for a few days and then down to 0.3 hours of sleep. She is not sure why it is reading differently. She makes sure that his mask is on and it looks like it is fitting well. She is not hearing the mask leaking or any snoring from his room. His machine continues to register large leaks averaging 3 hours 27 minutes 27 seconds in the last 60 days. He is using his machine 100% of the nights. I think the elevated residual AHI may be due to the large leaks registered on the machine. Mother states he does sleep mostly on his side. He may be having more leaking when he moves during the night that she is not witnessing. Mask leaks predominately from when patient sleeps on their side can be reduced by using a CPAP pillow. A CPAP pillow sample was shown. This and other styes can be purchased online. His mother voiced understanding. I will consult with Dr. Hinton for any other suggestions to help get his compliance up and AHI reduced. I will let his mother know of any changes after I consult with him. Patient's apnea severity and rationale for treatment to reduce apnea, improve sleep quality and reduce cardiovascular and cerebrovascular events was reviewed. * Continue autoCPAP pressure at 17-20 cmH2O * Notify me if snoring with mask or feeling that the pressure is too much or too little * Attempt to lose weight * Call this office if any problems using CPAP * Return for follow up in 2 months, or sooner if concerns arise Counseling Topics: Spare mask, Weight loss health impact Visit Type: In Office Other Participants: Other (Mother) Time Spent with Patient (minutes): 23 Provider Statement: I spent 100% of the Face to Face Visit with the patient with greater than 50% spent counseling the patient and coordination of care.
== END 2020-10-09 13:20 | disposition home or self-care (01) ==
LOC: SC 13:19
PROVIDERS: ATTEND Nurse Practitioner Family
DX: G47.33 Obstructive sleep apnea (adult) (pediatric) (principal); E66.9 Obesity, unspecified; Z68.39 Body mass index [BMI] 39.0-39.9, adult
CPT/HCPCS: 99212; 99213

== ENCOUNTER 2020-10-24 08:00 | Outpatient (CLI) | payer BC, MEDICAID ==
[2020-10-24 18:16] LABS: BASOPHILS % (AUTO) 0.3 %; EOSINOPHILS % (AUTO) 0.6 %; HCT - HEMATOCRIT 44.9 % (42.0-52.0); HGB - HEMOGLOBIN 14.9 g/dL (14.0-18.0); LYMPHOCYTES # (AUTO) 2.2 10^3/uL (1.5-3.5); LYMPHOCYTES % (AUTO) 35.4 %; MEAN CORPUSCULAR HEMOGLOBIN 31.3 pg (27.0-31.0); MEAN CORPUSCULAR HGB CONC 33.2 g/dL (32.0-36.0); MEAN CORPUSCULAR VOLUME 94.3 fL (80.0-94.0); MEAN PLATELET VOLUME 9.9 fL (7.4-11.4); MONOCYTES # (AUTO) 0.4 10^3/uL (0.0-1.0); MONOCYTES % (AUTO) 6.9 %; NEUTROPHILS # (AUTO) 3.5 10^3/uL (1.5-6.6); NEUTROPHILS % (AUTO) 56.3 %; PLT - PLATELET COUNT 212 10^3/uL (130-450); RED BLOOD COUNT 4.76 10^6/uL (4.70-6.10); RED CELL DISTRIBUTION WIDTH 12.1 % (12.0-15.0); WHITE BLOOD COUNT 6.2 x10^3/uL (4.8-10.8)
[2020-10-24 18:42] LABS: ALBUMIN 4.9 g/dL (3.2-5.5); ALBUMIN/GLOBULIN RATIO 1.6 (1.0-2.2); ALKALINE PHOSPHATASE 77 IU/L (42-121); ALT ALANINE AMINOTRANSFERASE 36 IU/L (10-60); AST ASPARTATE AMINOTRANSFERASE 27 IU/L (10-42); BILIRUBIN,TOTAL 0.7 mg/dL (0.2-1.0); BUN - BLOOD UREA NITROGEN 11 mg/dL (6-20); CALCIUM 9.2 mg/dL (8.5-10.3); CARBON DIOXIDE - CO2 21 mmol/L (21-32); CHLORIDE 102 mmol/L (101-111); CHOL/HDL RATIO 5.6 (<5.0); CHOLESTEROL 202 mg/dL; CREATININE 0.8 mg/dL (0.6-1.2); GFR - MDRD 116 (>89); GLUCOSE 90 mg/dL (70-100); HDL CHOLESTEROL 36 mg/dL; LDL CHOLESTEROL,CALCULATED 126 mg/dL; LDL/HDL RATIO 3.5 (<3.6); POTASSIUM 3.6 mmol/L (3.5-5.0); SODIUM 133 mmol/L (135-145); TOTAL PROTEIN 7.9 g/dL (6.7-8.2); TRIGLYCERIDES 200 mg/dL; VLDL CHOLESTEROL 40 mg/dL
[2020-10-24 18:47] LABS: THYROID STIMULATING HORMONE 1.07 uIU/mL (0.34-5.60)
[2020-10-24 20:56] LABS: ESTIMATED AVERAGE GLUCOSE 94 mg/dL (70-100); HEMOGLOBIN A1c% 4.9 % (4.27-6.07)
== END 2020-10-24 23:59 | disposition home or self-care (01) ==
LOC: LAB.WCP 08:00
PROVIDERS: ATTEND Family Medicine
DX: R73.01 Impaired fasting glucose (principal); Z79.899 Other long term (current) drug therapy
CPT/HCPCS: 36415; 80053; 80061; 83036; 83721; 84443; 85025

== ENCOUNTER 2020-12-11 13:15 | Outpatient (CLI) | payer BC, MEDICAID ==
--- NOTE | 2020-12-11 13:53 | SLEEP CARE CONSULTATION ---
Information from patient questionnaire entered by Nathalie Dominguez. I have reviewed and concur with the information entered by Nathalie Dominguez. This document represents the service I personally performed and the decisions made by , Valeria Warren ARNP. History of Present Illness Service Date and Time: 12/11/2020 1315 Previous diagnosis: Moderate, Obstructive Sleep Apnea-Hypopnea Syndrome AHI: 18.9 (in 2018) Reason for follow up: other (2-month followup) Equipment type: CPAP Equipment obtained from: [employer] (getting supplies as needed) Mask style: Full face Backup mask available: Yes (old mask) Last cushion change: 4 months Prior sleep studies: Yes Year and Where: 2018 - ACCUSOM BY [facility] Type of Sleep Study: Home sleep study HPI additional information: GOGO QUINTERO was diagnosed to have moderate, AHI 18.9, obstructive sleep apnea- hypopnea syndrome and returned today with mother for CPAP therapy 2 month follow-up. CPAP Compliance Data - Data Reviewed with Patient Average duration of nightly device use: 2 h 13 min Compliance rate %: 30 Current pressure setting (cmH2O): 17-20 Humidity settin Heated hose settin Average residual AHI: 16.9 Central apnea: 0.0 Obstructive apnea: 0.0 Hypopnea: 16.9 Average large leak: 2 h 2 min 16 sec Subjective Patient concerns: reports: mask leak noise. denies: aerophagia, mask discomfort, air blowing in eyes, condensation in mask/hose, nasal congestion, dry mouth, nose, throat, epistaxis, other Observed to snore while using device: No Current pressure setting perceived as: comfortable On therapy, patient: reports: sleeping better, awakening more refreshed, being more awake and alert during the day, more rested overall. denies: drowsiness while driving Initial [place] Sleepiness Scale score: 2 (in 2016) Current [place] Sleepiness Scale score: 2 Allergies and Home Medications Home medication list reviewed: Yes (no changes) Review of Systems Review of systems same as previous: Yes (no changes) Physical Exam Heart Rate: 73 O2 Saturation: 98 Height: 5 ft 10.5 in Weight: 278 lb Weight change since last visit: 2 lb loss Body Mass Index: 39.3 BMI Classification: Obese Impression and Plan 1. Obstructive Sleep Apnea-Hypopnea Syndrome, moderate, with poor treatment compliance and fair apnea control with an elevated residual AHI. On CPAP therapy, the patient has better sleep quality and is more rested overall. His mother states he has more energy when the machine has shown he has a good night with his machine. His compliance in last 30 days is better than his last visit. I still feel a titration study would be helpful to get one-on-one mask fitting and observance of his sleep to see what is going on, why the large mask leaks, etc. His download shows only hypopneas to 16.9 and his residual AHI is 16.9. I have ordered the titration study and due to need for mother to be close we will wait until we have our night motor vehicle technician to have the study done. I will follow up with him after the study is completed to go over the results. Patient's apnea severity and rationale for treatment to reduce apnea, improve sleep quality and reduce cardiovascular and cerebrovascular events was reviewed. * Continue auto CPAP pressure at 17-20 cmH2O * Titration study * Notify me if snoring with mask or feeling that the pressure is too much or too little * Continue to try to lose weight * Call this office if any problems using CPAP * Return for follow up after titration study, or sooner if concerns arise Counseling Topics: Spare mask, Weight loss health impact Visit Type: In Office Time Spent with Patient (minutes): 29 Provider Statement: I spent 100% of the Face to Face Visit with the patient with greater than 50% spent counseling the patient and coordination of care.
== END 2020-12-11 13:16 | disposition home or self-care (01) ==
LOC: SC 13:15
PROVIDERS: ATTEND Nurse Practitioner Family
DX: G47.33 Obstructive sleep apnea (adult) (pediatric) (principal); E66.9 Obesity, unspecified; Z68.39 Body mass index [BMI] 39.0-39.9, adult
CPT/HCPCS: 99212; 99213

== ENCOUNTER 2021-02-11 15:16 | Outpatient (CLI) | payer BC, MEDICAID ==
--- NOTE | 2021-02-11 17:35 | XRAY Report ---
PROCEDURE: Elbow 3 View RT INDICATIONS: OLECRANON BURSITIS, RIGHT TECHNIQUE: 3 views of the elbow were acquired. COMPARISON: Prior elbow series dated 11/05/2016 FINDINGS: Bones: Stable positioning of surgical pins in K wires involving the proximal ulna related to prior OR IF.. No suspicious bony lesions. Soft tissues: No elbow joint effusion. No suspicious soft tissue calcifications. IMPRESSION: Stable postsurgical changes in bony alignment. Reviewed by: TAJ Crockett on 02/11/2021 5:33 PM PDT Approved by: Tramaine Perez MD on 02/11/2021 5:33 PM PDT Station ID: [id number]
== END 2021-02-11 15:17 | disposition home or self-care (01) ==
LOC: DI.N 15:16
PROVIDERS: ATTEND Family Medicine
DX: M70.21 Olecranon bursitis, right elbow (principal)

== ENCOUNTER 2021-10-09 10:44 | Outpatient (CLI) | payer BC, MEDICAID ==
[2021-10-09 11:30] VITALS: BP 139/78
--- NOTE | 2021-10-09 11:30 | SLEEP CARE CONSULTATION ---
Information from patient questionnaire entered by Tomas Mckeon MA. I have reviewed and concur with the information entered by Tomas Mckeon MA. This document represents the service I personally performed and the decisions made by , Valeria Warren ARNP. History of Present Illness Service Date and Time: 10/09/2021 1044 Previous diagnosis: Moderate, Obstructive Sleep Apnea-Hypopnea Syndrome AHI: 18.9 (in 2018) Reason for follow up: other (10 MONTH F/U) Accompanied by: Mother Equipment type: CPAP Equipment obtained from: [employer] (having diffuculties, they will not bill his insurance) Mask style: Full face Backup mask available: No Prior sleep studies: Yes Year and Where: 2017 - [facility] Type of Sleep Study: Home sleep study HPI additional information: BAUDILIO QUINTERO was diagnosed to have moderate, AHI 18.9, obstructive sleep apnea- hypopnea syndrome and returned today with mother for CPAP therapy 10 month follow-up. Sleep Study - Results Type of Sleep Study: Home sleep study Prior sleep studies: Yes Year and Where: 2017 - [facility] BY [facility] CPAP Compliance Data - Data Reviewed with Patient Average duration of nightly device use: 33 MINUTES 26 SECONDS Compliance rate %: 4.4 Current pressure setting (cmH2O): 17-20 Humidity settin Heated hose settin Average residual AHI: 16.4 Average large leak: 28 MINUTES 45 SECONDS Subjective Missed days of use due to: reports: family emergency Patient concerns: reports: mask discomfort (coming off during the night), mask leak noise. denies: aerophagia, air blowing in eyes, condensation in mask/hose, nasal congestion, dry mouth, nose, throat, epistaxis Observed to snore while using device: No Current pressure setting perceived as: comfortable On therapy, patient: reports: other (mother states he falls asleep less when able to use CPAP properly) Initial [place] Sleepiness Scale score: 2 (in 2015) Current [place] Sleepiness Scale score: 3 (2021) Allergies and Home Medications Known drug allergies: Yes (PNC, BIAXIN) Drug allergies reviewed: Yes Home medication list reviewed: Yes (no changes) Allergy and home medication list: Allergies albuterol Allergy (Verified 04/11/18 17:49) Unknown clarithromycin [From Biaxin] Allergy (Verified 04/11/18 17:49) Unknown Penicillins Allergy (Verified 04/11/18 17:49) Unknown Review of Systems Review of systems same as previous: Yes ([facility]NS battery replaced) Physical Exam Vital signs obtained and entered by: JOHN SAMUEL Blood Pressure: 139/78 (LEFT, PULSE 70, RESP 18) Cuff size: wrist Heart Rate: 71 O2 Saturation: 97 Height: 5 ft 10.5 in Weight: 271 lb (WITH CLOTHES) Weight change since last visit: 1 lb gain Body Mass Index: 38.3 BMI Classification: Obese Impression and Plan 1. Obstructive Sleep Apnea-Hypopnea Syndrome, moderate, with poor treatment compliance and fair apnea control with elevated residual AHI. On CPAP therapy, the patient has better sleep quality and is more rested overall. Patient is developmentally delayed. His mother supplies information and support for Baudilio. His mother is very frustrated because their DME company, [employer], will not bill the insurance for his supplies. They will not do this because he is not showing as compliant. She has talked to his insurance company who are willing to pay for his supplies and they called [employer]. [employer] still will not bill the insurance and so the his mother has had to submit those bills to the insurance for payment. The insurance has contacted [employer], after she spoke with them, to let them know they will pay for his supplies but they still will not bill the insurance because he is not compliant. His mother states she has talked to the insurance company and they are requesting a letter from his provider outlining issues and reasons he needs his supplies for them to work on this issue. I will compose a letter for her to sweet pickled fruit maker later from the office. Mother also states that she will assist in putting on the mask when he is getting ready for bed every night which is picked up by the CPAP. His machine also shows that on average he wears it for only about 30 minutes per night. His mother has gone into check on him 2 hours after putting him to bed and finds the mask is still in place. I will write to have the machine serviced to see if it is malfunctioning. His mother is not sure if they will send the it desktop support technician out to check the machine since they will not bill the insurance right now. I will write it anyway and try to see if we can get them to check the machine out. Mother would like to get a better fitting mask as well but we have not been able to get a good mask refitting. I did order a titration study to see if we can get better apnea control and for a mask fitting but we have not been able to get him in for a study. Patient's apnea severity and rationale for treatment to reduce apnea, improve sleep quality and reduce cardiovascular and cerebrovascular events was reviewed. I also reviewed the benefit of consistent device use of CPAP for seizures (epilepsy). 2. Obesity, unspecified. Patient has gained weight. Currently patients BMI is 38.3. Obesity increases the risk of apnea, CPAP pressure requirements and overall health risks especially cardiovascular and diabetes. Thus patient is advised to continue to try to lose weight. Weight loss can be done with reducing portion size, reducing refined foods and balancing content with vegetables, fruit and whole grain foods. In addition, patient encouraged to get regular exercise. * Continue auto CPAP pressure at 17-20 cmH2O * Letter for insurance, mother to sweet pickled fruit maker when completed * Service machine, may not be recording correctly * Notify me if snoring with mask or feeling that the pressure is too much or too little * Attempt to lose weight * Call this office if any problems using CPAP * Return for follow up in 1 year, or sooner if concerns arise Counseling Topics: Spare mask, Weight loss health impact Visit Type: In Office Other Participants: Other (Mother) Time Spent with Patient (minutes): 25 Provider Statement: I spent 100% of the Face to Face Visit with the patient with greater than 50% spent counseling the patient and coordination of care.
== END 2021-10-09 10:45 | disposition home or self-care (01) ==
LOC: SC 10:44
PROVIDERS: ATTEND Nurse Practitioner Family
DX: G47.33 Obstructive sleep apnea (adult) (pediatric) (principal); E66.9 Obesity, unspecified; Z68.38 Body mass index [BMI] 38.0-38.9, adult
CPT/HCPCS: 99212; 99213

== ENCOUNTER 2022-09-10 11:17 | Outpatient (CLI) | payer BC, MEDICARE ==
[2022-09-10 12:05] VITALS: BP 122/70
--- NOTE | 2022-09-10 12:05 | SLEEP CARE CONSULTATION ---
Information from patient questionnaire entered by Faith Santoro. I have reviewed and concur with the information entered by Faith Santoro. This document represents the service I personally performed and the decisions made by me, Valeria Warren ARNP. History of Present Illness Service Date and Time: 09/10/2022 1117 Previous diagnosis: Moderate, Obstructive Sleep Apnea-Hypopnea Syndrome AHI: 18.9 (in 2018) Reason for follow up: other (11 MONTH F/U LAST SEEN 10/09/2021) Accompanied by: Mother Equipment type: CPAP ([employer] Dreamstation, recertified) Equipment obtained from: [employer] (is not happy with DME, not able to get them to bill insurance) Mask style: Full face Prior sleep studies: Yes Year and Where: 2017 - [facility]USOM BY [facility] Type of Sleep Study: Home sleep study HPI additional information: BAUDILIO QUINTERO was diagnosed to have moderate, AHI moderate, obstructive sleep apnea-hypopnea syndrome and returned today with mother for CPAP therapy eleven month follow-up. Sleep Study - Results Type of Sleep Study: Home sleep study Prior sleep studies: Yes Year and Where: 2017 - [facility]USOM [facility] CPAP Compliance Data Compliance data discussion: He has had a Dreamstation that was on the recall. Last month he received his re- certified CPAP machine. He has had difficulty getting supplies from his DME and needs supplies. Subjective Missed days of use due to: reports: mask issues, other (recall on CPAP) Patient concerns: reports: air blowing in eyes, mask leak noise. denies: aerophagia, mask discomfort, condensation in mask/hose, nasal congestion, dry mouth, nose, throat, epistaxis Observed to snore while using device: No Current pressure setting perceived as: comfortable Initial [place] Sleepiness Scale score: 2 (in 2016) Current [place] Sleepiness Scale score: 2 (09/10/22) Allergies and Home Medications Drug allergies reviewed: Yes (as listed in EMR) Home medication list reviewed: Yes (Lamictal 250 mg bid for seizures) Review of Systems Review of systems same as previous: Yes Physical Exam Vital signs obtained and entered by: FAITH Martinez MA Blood Pressure: 122/70 (left arm) Cuff size: regular Heart Rate: 67 O2 Saturation: 97 Height: 5 ft 10.5 in Weight: 275 lb 6.4 oz Body Mass Index: 38.9 BMI Classification: Obese Impression and Plan 1. Obstructive Sleep Apnea-Hypopnea Syndrome, moderate. Baudilio is mentally challenged and is accompanied by his mother today who helps with history. He has not been using his Dreamstation because of problems getting mask supplies from DME and it was on the [employer] recall. They have been still having issues with getting supplies because the DME will not bill his insurance. He just received a re-certified Dreamstation from [employer] and needs a new mask to get started again. Mother would like to change to a new DME and have a mask refitting for a different full face mask. I will add this to his prescription for supplies. I will have my ultrasound coordinator inform of DME options. A [facility] prescription will then be made. Patient;s mother was advised to contact this office if further supply problems. Patient's apnea severity and rationale for treatment to reduce apnea, improve sleep quality and reduce cardiovascular and cerebrovascular events was reviewed. I also reviewed the benefit of consistent device use of CPAP for seizures (epilepsy). Mother states his seizures are well controlled on his current treatment. 2. Obesity, unspecified. Currently patients BMI is 38.9. Obesity increases the risk of apnea, CPAP pressure requirements and overall health risks especially cardiovascular and diabetes. Thus patient is advised to lose weight. * Continue autoCPAP pressure at 17-20 cmH2O * Transfer DME * Mask refitting for full face mask * Update supplies * Notify me if snoring with mask or feeling that the pressure is too much or too little * Attempt to lose weight * Call this office if any problems using CPAP * Return for follow up in [1-2 months], or sooner if concerns arise Counseling Topics: Weight loss health impact Visit Type: In Office Other Participants: Caregiver (mother) Time Spent with Patient (minutes): 27 Provider Statement: I spent 100% of the Face to Face Visit with the patient with greater than 50% spent counseling the patient and coordination of care.
== END 2022-09-10 11:18 | disposition home or self-care (01) ==
LOC: SC 11:17
PROVIDERS: ATTEND Nurse Practitioner Family
DX: G47.33 Obstructive sleep apnea (adult) (pediatric) (principal); E66.9 Obesity, unspecified; Z68.39 Body mass index [BMI] 39.0-39.9, adult
CPT/HCPCS: 99212; 99213

== ENCOUNTER 2023-01-29 09:06 | Outpatient (CLI) | payer BC, MEDICARE | END 2023-01-29 09:07 | disposition left against medical advice (07) | LOC: EMS 09:06 | DX: R56.9 Unspecified convulsions (principal) ==